=== PATIENT | female | born 1950 | race Asian ===

== ENCOUNTER 2018-04-03 15:20 | Emergency (ER) | payer SELFPAY ==
[~2018-04-03] VITALS: Ht 154.9 cm; Wt 56.8 kg
[2018-04-03 15:33] LABS: GLUCOSE,POINT OF CARE 178 MG/DL (70-110)
[2018-04-03 18:28] LABS: GLUCOSE,POINT OF CARE 133 MG/DL (70-110)
[2018-04-03 18:41] VITALS: BP 132/79
== END 2018-04-03 18:44 | disposition home or self-care (01) ==
LOC: EMS 15:22
DX: E11.9 Type 2 diabetes mellitus without complications (principal)
CPT/HCPCS: 99283